=== PATIENT | female | born 2000 | race Caucasian/White ===

== ENCOUNTER 2021-07-13 16:11 | Emergency (ER) | payer BC ==
[~2021-07-13] VITALS: Ht 175.3 cm; Wt 95.2 kg
== END 2021-07-13 22:25 | disposition home or self-care (01) ==
LOC: ED 16:11
DX: O20.9 Hemorrhage in early pregnancy, unspecified (principal); Z3A.08 8 weeks gestation of pregnancy
CPT/HCPCS: 36415; 76801; 76817; 81001; 84702; 84703; 85025; 86900; 99284-25